=== PATIENT | female | born 1965 | race Two or more races ===

== ENCOUNTER → 2024-09-25 | Outpatient (CLI) | payer BC, SELFPAY ==
[2024-09-25 12:39] LABS: Glucose Estimated Average 105 mg/dL (80-131); Hemoglobin A1C 5.3 % Hgb (4.8-6.0)
[2024-09-25 12:52] LABS: Cardiac Risk Estimate 3.1 RATIO (3.7-5.6); Cholesterol 219 mg/dL (132-200); HDL Cholesterol 70 mg/dL (40-60); LDL Cholesterol,Calculated 130 mg/dL (0-130); Thyroid Stimulating Hormone 1.85 uIU/mL (0.55-4.78); Triglycerides 96 mg/dL (30-150); Vitamin D 25 Hydroxy Total 13.8 ng/mL (7.3-40.2)
== END | disposition home or self-care (01) ==
PROVIDERS: PCP Family Medicine; Referring Provider Registered Nurse; Visit Provider Registered Nurse
DX: Z00.00 Encounter for general adult medical examination without abnormal findings (principal)
CPT/HCPCS: 36415; 80061; 82306; 83036; 84443

== ENCOUNTER 2025-09-06 15:52 | Emergency (ER) | payer BC, SELFPAY ==
--- NOTE | 2025-09-06 16:44 | PC.NURSE ---
CALLED PT TO BE RME'D. PT DID NOT ANSWER AT THIS TIME
--- NOTE | 2025-09-06 17:01 | PC.NURSE ---
CALL PT AGAIN TO BE RMShanda'D. PT DID NOT ANSWER AT THIS TIME
--- NOTE | 2025-09-06 18:00 | PC.NURSE ---
PT WAS CALLED ONE LAST TIME TO BE RME'D. PT DID NOT ANSWER
== END 2025-09-06 18:05 | disposition left against medical advice (07) ==
LOC: SERX 18:10
PROVIDERS: Emergency Provider Emergency Medicine
DX: Z53.21 Procedure and treatment not carried out due to patient leaving prior to being seen by health care provider (principal)
CPT/HCPCS: 99281